=== PATIENT | male | born 1955 ===

== ENCOUNTER → 2017-09-03 | Emergency (ER) | payer OTHER ==
[~2017-09-03] VITALS: Ht 165.1 cm; Wt 91.6 kg
[~2017-09-03] MED LIST: LIPITOR20 MG; PEPCID40 MG PO; SYNTHROID50 MCG; TUSSI PRES-B L120 M1 PO; ZITHROMAX TRI-500 MG PO; ZOFRAN4 MG PO
== END | disposition home or self-care (01) ==
LOC: ER 12:41
DX: S93.492A Sprain of other ligament of left ankle, initial encounter (principal); X50.3XXA Overexertion from repetitive movements, initial encounter; Y93.89 Activity, other specified; Y92.89 Other specified places as the place of occurrence of the external cause; Y99.8 Other external cause status

== ENCOUNTER 2018-10-10 01:14 | Emergency (ER) | payer OTHER ==
[~2018-10-10] VITALS: Ht 167.6 cm; Wt 91.6 kg
[2018-10-10] MEDS ORDERED: ZYLOPRIM100 M1 (01:24)
[2018-10-10] MEDS ORDERED: HYDRALAZINE HC100 MG (01:24)
[2018-10-10] MEDS ORDERED: FENOFIBRATE160 MG (01:24)
[2018-10-10] MEDS ORDERED: IRBESARTAN-HCT1 EAC1 (01:25)
[2018-10-10] MEDS ORDERED: NORVASC10 MG (01:25)
[2018-10-10] MEDS ORDERED: ROSUVASTATIN CA10 MG (01:25)
== END 2018-10-10 03:13 ==
LOC: ER 01:14
DX: R14.0 Abdominal distension (gaseous) (principal)

== ENCOUNTER 2018-11-22 03:42 | Emergency (ER) | payer OTHER ==
[~2018-11-22] VITALS: Ht 157.5 cm; Wt 90.7 kg
[~2018-11-22 03:42] MED LIST changes: +FENOFIBRATE160 MG; +HYDRALAZINE HC100 MG; +IRBESARTAN-HCT1 EAC1; +NORVASC10 MG; +ROSUVASTATIN CA10 MG; +ZYLOPRIM100 M1
[2018-11-22] MEDS ORDERED: ULTRACET PO (06:16)
== END 2018-11-22 06:26 | disposition home or self-care (01) ==
LOC: ER 03:42
DX: M54.5 Low back pain (principal)